=== PATIENT | male | born 1955 | race Two or more races ===

== ENCOUNTER 2017-09-12 09:52 | Inpatient (IN) | payer MEDICARE ==
[2017-09-12] MEDS ORDERED: LACTATED RINGER'S 1,000 ML IV* (11:00)
[2017-09-12] MEDS ORDERED: CEFAZOLIN 2 GM/50 ML (PMX) 50 ML IVPB (11:00)
[2017-09-12] MEDS ORDERED: ROCURONIUM 50 MG INJ (11:59)
[2017-09-12] MEDS ORDERED: LIDOCAINE 2% (SDV) 5 ML INJ (11:59)
[2017-09-12] MEDS ORDERED: SUCCINYLCHOLINE CHLORIDE 100 MG/5 ML SYG IV (11:59)
[2017-09-12] MEDS ORDERED: PROPOFOL 20 ML (11:59)
[2017-09-12] MEDS ORDERED: MIDAZOLAM 1 MG/ML 2 ML INJ (11:59)
[2017-09-12] MEDS ORDERED: LABETALOL HCL 20MG INJ (12:12)
[2017-09-12] MEDS ORDERED: PHENYLephrine (100 MCG/ML) 5ML SYG ×3 (12:29→14:41)
[2017-09-12] MEDS ORDERED: FAMOTIDINE 20 MG INJ (12:33)
[2017-09-12] MEDS ORDERED: CEFAZOLIN 1 GM INJ (12:33)
[2017-09-12] MEDS ORDERED: ETOMIDATE 20 MG INJ (12:33)
[2017-09-12] MEDS ORDERED: ONDANSETRON 4 MG INJ (12:33)
[2017-09-12] MEDS ORDERED: DEXAMETHASONE 4 MG/ML 1 ML INJ (12:33)
[2017-09-12] MEDS: BUPIVACAINE 0.25%/EPI (SDV) 30 ML INJ (13:29)
[2017-09-12] MEDS: CA CHLORIDE 10% 10 ML SYRINGE (13:29)
[2017-09-12] MEDS: CEFAZOLIN 1 GM INJ (13:30)
[2017-09-12] MEDS: SURGIFOAM POWDER 1 GM KIT (13:31)
[2017-09-12] MEDS: HEPARIN 1000 UNITS/ML 10 ML INJ ×2 (13:31→13:32)
[2017-09-12] MEDS: THROMBIN 5000 UNIT VIAL (13:32)
[2017-09-12] MEDS: FENTAnyl 50 MCG/ML VIAL (15:48)
[2017-09-12] MEDS: BUPIVACAINE 0.25% (MPF) 30 ML INJ (15:48)
[2017-09-12] MEDS ORDERED: DIPHENHYDRAMINE 50 MG INJ IV (16:00)
[2017-09-12] MEDS ORDERED: ONDANSETRON 4 MG INJ IV ×2 (16:00→16:30)
[2017-09-12] MEDS ORDERED: hydrALAzine 20 MG INJ IV (16:00)
[2017-09-12] MEDS ORDERED: HYDROmorphONE (0.2 MG/ML) 10ML SYG IV ×2 (16:00)
[2017-09-12] MEDS ORDERED: LABETALOL HCL 20MG INJ IV (16:00)
[2017-09-12] MEDS ORDERED: MEPERIDINE 25 MG INJ IV (16:00)
[2017-09-12] MEDS ORDERED: SUGAMMADEX SODIUM 200 MG/2 ML VIAL IV (16:15)
[2017-09-12] MEDS ORDERED: CEFAZOLIN 1 GM/50 ML (PMX) 50 ML IVPB (16:30)
[2017-09-12] MEDS ORDERED: ZOLPIDEM 5 MG TAB PO (16:30)
[2017-09-12] MEDS ORDERED: CEPASTAT LOZENGE MT (16:30)
[2017-09-12] MEDS ORDERED: ACETAMINOPHEN 325 MG TAB PO (16:30)
[2017-09-12] MEDS ORDERED: BISACODYL 10 MG SUPP PR (16:30)
[2017-09-12] MEDS ORDERED: AL HYDROX/MG HYDROX/SIMETH 30 ML CUP PO (16:30)
[2017-09-12] MEDS ORDERED: HYDROmorphONE 0.5 MG/0.5 ML SYG IV (16:30)
[2017-09-12] MEDS ORDERED: NALOXONE (0.4 MG/ML) INJ IV (16:30)
[2017-09-12] MEDS: HYDROmorphONE 0.2 MG/ML PCA IV (16:42)
[2017-09-12] MEDS: 1/2 NS + KCL 20 MEQ 1,000 ML IV (18:23)
[2017-09-12] MEDS: ACCU-CHEK XX (19:55)
[2017-09-12] MEDS: CEFAZOLIN 1 GM/50 ML (PMX) 50 ML IVPB (20:56)
[2017-09-12] MEDS: DOCUSATE SODIUM 100 MG CAP PO (20:56)
[2017-09-12] MEDS: INSULIN ASPART [NOVOLOG] 3 ML PEN SC (20:59)
[2017-09-13] MEDS: 1/2 NS + KCL 20 MEQ 1,000 ML IV ×3 (04:16→22:35)
[2017-09-13] MEDS: CEFAZOLIN 1 GM/50 ML (PMX) 50 ML IVPB ×2 (04:16→11:53)
[2017-09-13 05:14] LABS: ADD MAN DIFF? NO
[2017-09-13] MEDS: PANTOPRAZOLE 40 MG INJ IV (05:17)
[2017-09-13 05:23] LABS: WHITE BLOOD COUNT 7.8 10^3/ul (4.8-10.8)
[2017-09-13 05:23] LABS: BASOPHILS % 0.4 % (0.0-2.0); EOSINOPHILS # 0.1 10^3/ul (0.0-0.5); EOSINOPHILS % 0.9 % (0.0-7.0); HEMATOCRIT 31.3 % (42.0-52.0); HEMOGLOBIN 10.6 g/dl (14.0-18.0); LYMPHOCYTES % 25.5 % (15.0-51.0); MEAN CORPUSCULAR HEMOGLOBIN 30.3 pg (29.0-33.0); MEAN CORPUSCULAR HGB CONC 33.9 g/dl (32.0-37.0); MEAN CORPUSCULAR VOLUME 89.4 fl (82.0-101.0); MEAN PLATELET VOLUME 11.2 fl (7.4-10.4); MONOCYTE # 0.6 10^3/ul (0.3-0.9); MONOCYTES % 7.5 % (0.0-11.0); NEUTROPHIL # 5.1 10^3/ul (1.6-7.5); NEUTROPHILS % 65.4 % (39.0-77.0); PLATELET COUNT 153 10^3/UL (140-415); RED CELL DISTRIBUTION WIDTH 12.6 % (11.5-14.5)
[2017-09-13 05:52] LABS: ANION GAP 12 (8-16); BLOOD UREA NITROGEN 12 mg/dl (7-20); CALCIUM 8.9 mg/dl (8.4-10.2); CARBON DIOXIDE 29 mmol/L (21-31); CHLORIDE 105 mmol/L (97-110); CREATININE 0.68 mg/dl (0.61-1.24); GLUCOSE 133 mg/dl (70-220); MAGNESIUM 1.5 mg/dl (1.7-2.5); POTASSIUM 3.8 mmol/L (3.5-5.1); SODIUM 142 mmol/L (135-144)
[2017-09-13] MEDS ORDERED: metFORMIN 500 MG TAB PO (07:50)
[2017-09-13] MEDS: DOCUSATE SODIUM 100 MG CAP PO ×2 (08:51→20:24)
[2017-09-13] MEDS: INSULIN ASPART [NOVOLOG] 3 ML PEN SC ×4 (08:56→20:31)
[2017-09-13] MEDS ORDERED: DEXTROSE 50% 50 ML SYRINGE IV ×2 (09:00)
[2017-09-13] MEDS ORDERED: GLUCOSE GEL 15 GRAM TUBE BUCCAL (09:00)
[2017-09-13] MEDS ORDERED: GLUCAGON 1 MG INJ IM (09:00)
[2017-09-13] MEDS ORDERED: GLUCOSE GEL 15 GRAM TUBE PO ×2 (09:00)
[2017-09-13] MEDS: LISINOPRIL 10 MG TAB PO (09:23)
[2017-09-13] MEDS: LINAGLIPTIN 5 MG TABLET PO (09:23)
[2017-09-13] MEDS: GEMFIBROZIL 600 MG TAB PO ×2 (10:28→20:24)
[2017-09-13] MEDS: MAGNESIUM SULFATE 3 GM in DEXTROSE 5% 100 ML IVPB (10:29)
[2017-09-13] MEDS: ACCU-CHEK XX ×3 (11:00→19:55)
[2017-09-13] MEDS: CYCLOBENZAPRINE 10 MG TAB PO (14:54)
[2017-09-13] MEDS: metFORMIN 500 MG TAB PO (18:15)
[2017-09-13] MEDS: HYDROmorphONE 0.2 MG/ML PCA IV (19:56)
[2017-09-13] MEDS: NEOMYC/POLYMYX/BACIT 30 GM OINT TOP (20:23)
[2017-09-13] MEDS: ATORVASTATIN 20 MG TAB PO (20:24)
[2017-09-14] MEDS: DIPHENHYDRAMINE 50 MG INJ IV (03:45)
[2017-09-14] MEDS: PANTOPRAZOLE 40 MG INJ IV (05:10)
[2017-09-14 05:55] LABS: ADD MAN DIFF? NO
[2017-09-14 06:01] LABS: WHITE BLOOD COUNT 7.3 10^3/ul (4.8-10.8)
[2017-09-14 06:01] LABS: BASOPHILS % 0.3 % (0.0-2.0); EOSINOPHILS # 0.1 10^3/ul (0.0-0.5); EOSINOPHILS % 0.7 % (0.0-7.0); HEMOGLOBIN 10.3 g/dl (14.0-18.0); LYMPHOCYTES # 1.6 10^3/ul (0.8-2.9); LYMPHOCYTES % 21.9 % (15.0-51.0); MEAN CORPUSCULAR HEMOGLOBIN 30.7 pg (29.0-33.0); MEAN CORPUSCULAR HGB CONC 34.3 g/dl (32.0-37.0); MEAN CORPUSCULAR VOLUME 89.3 fl (82.0-101.0); MEAN PLATELET VOLUME 11.5 fl (7.4-10.4); MONOCYTE # 0.8 10^3/ul (0.3-0.9); MONOCYTES % 10.4 % (0.0-11.0); NEUTROPHIL # 4.8 10^3/ul (1.6-7.5); NEUTROPHILS % 66.4 % (39.0-77.0); PLATELET COUNT 153 10^3/UL (140-415); RED BLOOD COUNT 3.36 10^6/ul (4.70-6.10); RED CELL DISTRIBUTION WIDTH 12.7 % (11.5-14.5)
[2017-09-14 06:15] LABS: ANION GAP 8 (8-16); BLOOD UREA NITROGEN 8 mg/dl (7-20); CALCIUM 8.9 mg/dl (8.4-10.2); CARBON DIOXIDE 31 mmol/L (21-31); CHLORIDE 105 mmol/L (97-110); CREATININE 0.64 mg/dl (0.61-1.24); GLUCOSE 151 mg/dl (70-220); MAGNESIUM 1.8 mg/dl (1.7-2.5); POTASSIUM 4.2 mmol/L (3.5-5.1); SODIUM 140 mmol/L (135-144)
[2017-09-14] MEDS: NEOMYC/POLYMYX/BACIT 30 GM OINT TOP (08:56)
[2017-09-14] MEDS: LISINOPRIL 10 MG TAB PO (08:56)
[2017-09-14] MEDS: GEMFIBROZIL 600 MG TAB PO (08:56)
[2017-09-14] MEDS: DOCUSATE SODIUM 100 MG CAP PO (08:56)
[2017-09-14] MEDS: LINAGLIPTIN 5 MG TABLET PO (08:56)
[2017-09-14] MEDS: INSULIN ASPART [NOVOLOG] 3 ML PEN SC ×2 (08:57→13:02)
[2017-09-14] MEDS: 1/2 NS + KCL 20 MEQ 1,000 ML IV (09:00)
[2017-09-14] MEDS: metFORMIN 500 MG TAB PO (09:02)
[2017-09-14] MEDS: HYDROCODONE/APAP (10/325) TAB PO (09:32)
[2017-09-14] MEDS: ACCU-CHEK XX ×2 (09:50→14:46)
[2017-09-14] MEDS ORDERED: HYDROCODONE/APAP (10/325) TAB PO (10:00)
== END 2017-09-14 15:36 | disposition home or self-care (01) | DRG 517 ==
LOC: REC 09:52 → MS1 18:06
PROVIDERS: Specialist
PROC: 01NB0ZZ Release Lumbar Nerve, Open Approach (ICD-10-PCS; principal; 2017-09-12 12:00)
DX: M48.062 Spinal stenosis, lumbar region with neurogenic claudication (principal); M54.16 Radiculopathy, lumbar region; E11.9 Type 2 diabetes mellitus without complications; H26.9 Unspecified cataract; F17.200 Nicotine dependence, unspecified, uncomplicated; I10 Essential (primary) hypertension; E78.5 Hyperlipidemia, unspecified; R53.1 Weakness
CPT/HCPCS: 72020; 80048; 82962; 83735; 85025; 86850; 86900; 86901; 86999; 87086; 88304; 97116; 97161; 97530